=== PATIENT | male | born 1950 | race Caucasian/White ===

== ENCOUNTER 2016-04-14 07:10 | Day surgery (SDC) | payer MEDICARE, OTHER ==
[2016-04-09 13:37] LABS: BASOPHILS 0.5 %; BASOPHILS ABSOLUTE 0.03 10/3/uL (0.0-0.16); EOSINOPHILS 0.8 %; EOSINOPHILS ABSOLUTE 0.05 10/3/uL (0.0-0.53); HEMATOCRIT 38.8 % (40.0-51.0); HEMOGLOBIN 13.2 g/dL (13.6-17.8); IMMATURE GRANULOCYTES 0.2 %; IMMATURE GRANULOCYTES ABSOLUTE 0.01 10/3/uL (0.0-0.11); LYMPHOCYTES 10.5 %; LYMPHOCYTES ABSOLUTE 0.62 10/3/uL (0.67-4.30); MEAN PLATELET VOLUME 13.4 fL (9.2-13.0); MONOCYTES 10.3 %; MONOCYTES ABSOLUTE 0.61 10/3/uL (0.21-1.20); NEUTROPHILS 77.7 %; NEUTROPHILS ABSOLUTE 4.59 10/3/uL (2.02-8.40); PLATELET COUNT 65 10/3/uL (150-400); RBC DISTRIBUTION WIDTH 11.8 % (12.0-16.0); RED CELL COUNT 3.88 10/6/uL (4.7-6.1); WHITE BLOOD CELLS 5.9 10/3/uL (4.5-10.5)
[2016-04-09 13:41] LABS: MANUAL DIFF NO %
[2016-04-09 13:54] LABS: A/G RATIO 1.2 (0.7-1.9); ALBUMIN 4.1 G/DL (3.5-5.0); ALKALINE PHOSPHATASE 94 U/L (45-117); BUN (BLOOD UREA NITROGEN) 14 MG/DL (6-23); CALCIUM, SERUM 8.8 MG/DL (8.5-10.4); CHLORIDE, SERUM 100 MMOL/L (96-112); CO2 (CARBON DIOXIDE) 29 MMOL/L (24-34); CREATININE 1.17 MG/DL (0.70-1.30); GFR AFRICAN AMERICAN 75 ML/MIN (>=60); GFR NON AFRICAN AMERICAN 65 ML/MIN (>=60); GLOBULIN 3.3 G/DL (2.5-4.1); GLUCOSE, SERUM 105 MG/DL (60-99); POTASSIUM, SERUM 3.9 MMOL/L (3.5-5.3); SGOT(AST) 22 U/L (5-40); SGPT(ALT) 20 U/L (5-65); SODIUM, SERUM 139 MMOL/L (135-148); TOTAL BILIRUBIN 1.3 MG/DL (0-1.2); TOTAL PROTEIN 7.4 G/DL (6.0-8.5)
[2016-04-09 14:09] LABS: MACROCYTES 1+ (5-10/OIF) (0-5/OIF); PLATELET ESTIMATE DEC (ADEQUATE)
--- NOTE | ~2016-04-14 | OP ---
Record Of Operation [facility] [address] [place]. [address] NAME: ASHLEY GARCIA : [birth year] STATUS : REG [facility]#: [id number] AGE: 65 ADM/REG DATE : 04/14/16 MR#: [id number] REPORT SERV DATE: 04/14/16 DICTATED BY: KAYODE SMALL DATE: 04/14/16 REPORT STATUS : Draft TRANSCRIBED BY: MODL DATE: 04/14/16 DATE OF PROCEDURE: 04/14/2016 PREOPERATIVE DIAGNOSIS: Left hydrocele. POSTOPERATIVE DIAGNOSIS: Left hydrocele. PROCEDURE: Left hydrocelectomy. ANESTHESIA: General inhalation. SURGEON: Kayode Small M.D. SPECIMENS: Hydrocele sac. ESTIMATED BLOOD LOSS: 10 mL. COMPLICATIONS: None. DRAINS: One 1-1/4-inch scrotal Warren drain. IMMEDIATE POSTOP: Satisfactory. DESCRIPTION OF PROCEDURE: The patient was brought into the surgery suite, placed in supine position on the operating table, given general inhalational anesthetic. The scrotum was then prepped and draped in a sterile fashion. Left hemiscrotal incision was made, carried down to the skin using cautery. The hydrocele and testicle were then delivered from the left hemiscrotum using combination of blunt and sharp dissection. Hydrocele sac was opened and then drained approximately 150 mL of clear fluid. Testicle and epididymis were normal. Excess hydrocele sac was then removed using Bovie cautery. Hemostasis within left hemiscrotum and spermatic cord were then carefully obtained with electrocautery. Redundant hydrocele sac was then "bottle necked" around the posterior portion of spermatic cord, sutured loosely into place with 3-0 chromic catgut. The spermatic cord was then infiltrated with about 5 mL of 0.5% Marcaine without epinephrine. The testis appeared perfectly viable as did the epididymis and spermatic cord structures. The left hemiscrotum was then copiously irrigated. Checked for hemostasis, which was complete. A 1-1/4-inch Warren drain was then brought out through a separate stab incision. The testicle and spermatic cord were then placed back in the left hemiscrotum in normal anatomic position and the wound was closed in layers. The drain was sutured loosely into place using a 0 silk suture. At this point, the patient was awakened and sent to recovery in satisfactory condition. MS/MODL Kayode Record Of [facility] [address] [place]. [address] NAME: ASHLEY GARCIA : [birth year] STATUS : REG [facility] [place] PAT#: [id number] AGE: 65 ADM/REG DATE : 04/14/16 MR#: [id number] REPORT SERV DATE: 04/14/16 DICTATED BY: KAYODE SMALL DATE: 04/14/16 REPORT STATUS : Draft TRANSCRIBED BY: MODL DATE: 04/14/16 Jeny Small / [id number] CC: Jeny Wilkins CRYSTAL
[~2016-04-14 07:10] MED LIST: *UNABLE1; AMARYL2 PO; ASA5GR PO; ASAB PO; ATORVASTATIN PO; COREG PO; COREG6 PO; COZ50 PO; CYANO1000T PO; DIABET2.5 PO; DIOV80 PO; FORTAMET500 MG PO; GLUCOV2.5 PO; GLUCPH PO; GLYBURIDE PO; HALF81 PO; L20 PO; LIPITOR40 PO; LOPID6 PO; LOSARTAN PO; METAMUCIL CAN7 OZ PO; METFORMIN PO; PRIN10 PO; PROTONIX PO; PROTONIX20 MG PO; SPIRO25 PO; VENTOLIN HFA INH; VIBRA-TAB 100100 MG PO; ZOCOR40 PO
[2016-07-23] MEDS ORDERED: MELATONIN5 M1 PO (13:58)
== END 2016-04-14 17:51 | disposition home or self-care (01) ==
LOC: SDC 07:10
PROVIDERS: Urology
PROC: 0VB70ZZ Excision of Left Tunica Vaginalis, Open Approach (ICD-10-PCS; principal; 2016-04-14 08:45)
DX: N43.3 Hydrocele, unspecified (principal); I10 Essential (primary) hypertension; J44.9 Chronic obstructive pulmonary disease, unspecified; E11.9 Type 2 diabetes mellitus without complications; I25.2 Old myocardial infarction; I50.9 Heart failure, unspecified; I25.10 Atherosclerotic heart disease of native coronary artery without angina pectoris; K21.9 Gastro-esophageal reflux disease without esophagitis; Z95.1 Presence of aortocoronary bypass graft; Z79.82 Long term (current) use of aspirin; Z79.899 Other long term (current) drug therapy; Z87.891 Personal history of nicotine dependence
CPT/HCPCS: 80053; 82962; 85025; 88302; 93005; A9270-GY; J0690; J1170; J2250; J2405; J2710; J3010

== ENCOUNTER 2016-08-03 07:19 | Day surgery (SDC) | payer MEDICARE, OTHER ==
--- NOTE | ~2016-08-03 | EGD ---
EGD REPORT [facility] [address] [address] NAME: ASHLEY RODRIGUEZ : [birth year] STATUS : REG [facility]#: [id number] AGE: 65 ADM/REG DATE : 08/03/16 MR#: [id number] REPORT SERV DATE: 08/03/16 DICTATED BY: GREY PAINTING DATE: 08/03/16 REPORT STATUS : Draft TRANSCRIBED BY: [employer] DATE: 08/03/16 [facility] Center Patient Name: Ashley Rodriguez Date of : 1950 Attending MD: GREY PAINTING MD Procedure Date No Time: 08/03/2016 Procedure: Colonoscopy Indications: High risk colon cancer surveillance: Personal history of colonic polyps Referring MD: BECKY FLOYD Medicines: as per anesthesia Complications: No immediate complications. Procedure: Pre-Anesthesia Assessment: - ASA Grade Assessment: III - A patient with severe systemic disease. After I obtained informed consent, the scope was passed under direct vision. Throughout the procedure, the patient's blood pressure, pulse, and oxygen saturations were monitored continuously. The PCF [id number] was introduced through the anus and advanced to the cecum, identified by appendiceal orifice and ileocecal valve. The colonoscopy was performed without difficulty. The patient tolerated the procedure. The quality of the bowel preparation was adequate to identify polyps. Findings: The perianal and digital rectal examinations were normal. There was evidence of a prior end-to-end colo-rectal anastomosis in the rectum. This was patent. This was characterized by healthy appearing mucosa. This was traversed. A few small and large-mouthed diverticula were found in the sigmoid colon, in the descending colon and in the transverse colon. Internal hemorrhoids were found during endoscopy and were mild. Impression: - Patent end-to-end colo-rectal anastomosis. - Diverticulosis in the sigmoid colon, in the descending colon and in the transverse colon. - Internal hemorrhoids. Recommendation: - Repeat colonoscopy in 5 years for surveillance. Procedure Code(s): --- Professional --- 35904, Colonoscopy, flexible, proximal to splenic flexure; diagnostic, with or without collection of specimen(s) by brushing or washing, with or without EGD REPORT [place] [address] [place]. [address] NAME: ASHLEY RODRIGUEZ : [birth year] STATUS : REG [facility] [place] PAT#: [id number] AGE: 65 ADM/REG DATE : 08/03/16 MR#: [id number] REPORT SERV DATE: 08/03/16 DICTATED BY: GREY PAINTING. DATE: 08/03/16 REPORT STATUS : Draft TRANSCRIBED BY: [employer] DATE: 08/03/16 colon decompression (separate procedure) Diagnosis Code(s): --- Professional --- Z98.0, Intestinal bypass and anastomosis status K64.8, Other hemorrhoids K57.30, Diverticulosis of large intestine without perforation or abscess without bleeding Z86.010, Personal history of colonic polyps CPT copyright 2013 [employer]. All rights reserved. The codes documented in this report are preliminary and upon veneer sander review may be revised to meet current compliance requirements. GREY PAINTING MD 08/03/2016 10:13 AM This report has been signed electronically. Number of Addenda: 0 Note Initiated On: 08/03/2016 9:50 AM Scope Withdrawal Time 0 hours 6 minutes 28 seconds [id number] [id number]
[~2016-08-03 07:19] MED LIST changes: +MELATONIN5 M1 PO
== END 2016-08-03 23:59 | disposition home health service (06) ==
LOC: DMU 07:19
PROVIDERS: Internal Medicine Gastroenterology
PROC: 0DJD8ZZ Inspection of Lower Intestinal Tract, Via Natural or Artificial Opening Endoscopic (ICD-10-PCS; principal; 2016-08-03 09:00)
DX: Z12.11 Encounter for screening for malignant neoplasm of colon (principal); K64.8 Other hemorrhoids; K57.30 Diverticulosis of large intestine without perforation or abscess without bleeding; I25.10 Atherosclerotic heart disease of native coronary artery without angina pectoris; I11.0 Hypertensive heart disease with heart failure; K21.9 Gastro-esophageal reflux disease without esophagitis; I50.9 Heart failure, unspecified; M19.90 Unspecified osteoarthritis, unspecified site; I25.2 Old myocardial infarction; E11.9 Type 2 diabetes mellitus without complications; Z95.1 Presence of aortocoronary bypass graft; Z98.0 Intestinal bypass and anastomosis status; Z86.010 Personal history of colon polyps; I25.5 Ischemic cardiomyopathy; Z87.891 Personal history of nicotine dependence; E78.00 Pure hypercholesterolemia, unspecified; Z90.49 Acquired absence of other specified parts of digestive tract; Z98.890 Other specified postprocedural states
CPT/HCPCS: 82962